=== PATIENT | female | born 1995 | race Caucasian/White ===

== ENCOUNTER 2016-09-28 09:13 | Emergency (ER) | payer OTHER ==
[~2016-09-28] VITALS: Ht 160 cm; Wt 54.5 kg
[~2016-09-28 09:13] MED LIST: ARMOUR THYROID15 MG PO; SYNTHROID 0.0.025 MG PO
[2016-09-28 09:15] VITALS: BP 123/92; TEMP 98.1
[2016-09-28] MEDS ORDERED: CEPHALEXIN250 M1 PO (09:18)
[2016-09-28] MEDS ORDERED: ZOFRAN 4MG T4 MG/TAB PO (10:52)
[2016-09-28 10:57] VITALS: PULSE 88
== END 2016-09-28 11:00 | disposition home or self-care (01) ==
LOC: COL.ER 09:13
DX: K59.00 Constipation, unspecified (principal)

== ENCOUNTER 2017-02-28 19:18 | Emergency (ER) | payer OTHER ==
[~2017-02-28] VITALS: Ht 160 cm; Wt 55.9 kg
[~2017-02-28 19:18] MED LIST changes: +CEPHALEXIN250 M1 PO; +ZOFRAN 4MG T4 MG/TAB PO
[2017-02-28 19:20] VITALS: BP 123/75; PULSE 69; TEMP 98.7
== END 2017-02-28 20:38 | disposition home or self-care (01) ==
LOC: COL.ER 19:18
DX: R07.9 Chest pain, unspecified (principal); R07.1 Chest pain on breathing

== ENCOUNTER → 2017-04-18 | Outpatient (REF) | LOC: WSOH 15:00 | DX: Z02.89 Encounter for other administrative examinations (principal) ==